=== PATIENT | male | born 1950 ===

== ENCOUNTER 2022-12-16 15:24 | Outpatient (CLI) | payer MEDICARE, OTHER ==
--- NOTE | 2022-12-16 16:34 | Sleep Patient Instructions ---
Sleep Center Visit Summary - Patient Visit Information Reason for Visit: Initial consult - Patient Instructions Additional Instructions: You will continue with CPAP therapy with pressure set at 7-14 cmH2O. A supply prescription will be updated with your DME. We encourage you to continue to try to lose weight. Please follow up with the sleep care office in 1 year. - Clinic Information Contact: [facility] [address] [place] [address] [email or web address] T: [phone]
--- NOTE | 2022-12-16 16:43 | SLEEP CARE CONSULTATION ---
Information from patient questionnaire entered by Samantha Real. I have reviewed and concur with the information entered by Samantha Real. This document represents the service I personally performed and the decisions made by me, Morena Husain ARNP. History of Present Illness Service Date and Time: 12/16/2022 1524 Reason for Visit: New patient, Previously diagnosed sleep apnea, sleep apnea on CPAP therapy Chief Complaint: reports: Other (Follow up for existing apnea) Date of Onset: 15-20 years Usual bedtime: 11 PM to midnight Time it takes to fall asleep: less than 10 mins Snores at night: Yes Observed to quit breathing while asleep: Yes Sleeps alone due to snoring: No Number of times waking at night: 2-3 Reasons for waking at night: reports: Pain, Bathroom Toss, Turn, or Twitch while sleeping: No Recalls having dreams: Yes Usually gets out of bed at: 07-0730 Feels refreshed in the morning: Yes Morning headache: No Sleepy or fatigued during the day: No Ever fallen asleep while driving: No Takes day naps: Yes Dreams during day naps: No Prior sleep studies: Yes Year and Where: [facility] Additional HPI information: RICH MENDOZA was previously diagnosed to have moderate, AHI 20.7, obstructive sleep apnea-hypopnea syndrome as documented in chart notes from [facility] and comes in today to establish care for CPAP therapy. We obtained a sleep study dated 12/14/2007 showing moderate obstructive sleep apnea with an average AHI of 20.7 and keith oxygen saturation of 74.6%. - Parasomnia Symptoms Ever been unable to move upon waking from sleep: No Walks in sleep: No Talks in sleep: No Ever acted out dreams in sleep: No Ever felt weak in the knees when startled or emotional: Yes Bothered by creepy, crawly, restless sensations in legs: No Problems with memory or concentration: Yes CPAP Compliance Data - Data Reviewed with Patient Average duration of nightly device use: 6 hours 48 minutes Compliance rate %: 99.5 (181/182 days used) Current pressure setting (cmH2O): 7-14 (avg 12) Average residual AHI: 2 Average large leak: 1 mins 15 secs Compliance data discussion: He has a [facility] with a setup date of 05/2019. He is getting his supplies from [facility] with no issues. He is using a nasal cushion mask, [employer]med Mirage FX. He does have a backup mask right now. He replaced his nasal cushion last night. Subjective Missed days of use due to: reports: travel Patient concerns: reports: dry mouth, nose, throat (rarely). denies: aerophagia, mask discomfort, air blowing in eyes, mask leak noise, condensation in mask/hose, nasal congestion, epistaxis Observed to snore while using device: No Current pressure setting perceived as: comfortable On therapy, patient: reports: sleeping better, awakening more refreshed, being more awake and alert during the day, more rested overall. denies: drowsiness while driving Initial [place] Sleepiness Scale score: 6 (12/16/2022) Past Medical History Past Medical History: reports: Hypertension, Arthritis Social History The patient's occupation is a [place]. Patient is Unknown and lives in . Have you smoked in the past 12 months: No Cigarettes per day (20/pack): 2 Years of smokin Quit date: Jan 1998 Smoking Pack Years: 2.5 Alcohol use: Yes Alcohol amount and frequency: 1-2 beers, 2-3 times week Caffeine use: Yes Caffeine amount and frequency: 2 cups coffee daily Family History Family history of sleep disordered breathing: No Allergies and Home Medications Known drug allergies: No Drug allergies reviewed: Yes Home medication list reviewed: Yes Allergy and home medication list: Medications: Simvastatin 20 mg Loraditine 10 mg Amlodipine 10 mg Carvedilol 12.5 mg Furosemide 20 mg Amoxicillin 500 mg--ongoing preventative Lisinopril 40 mg Aspirin 81 mg Turmeric 500 mg [place] oil 1000 mg Echinacea 760 mg Acidopholis Review of Systems Weight gain over past 5 years: 25-30 regained from the 50 Weight loss over past 5 years: 50 Cardiovascular: reports: high blood pressure, leg or foot swelling Gastrointestinal: denies: heartburn Neurological: denies: headaches Psychiatric: denies: anxiety, depression Ear/Nose/Throat: reports: sinus problems, wisdom teeth removed. denies: tonsillectomy Musculoskeletal: reports: joint pain, joint swelling Immunologic: reports: sneezing Physical Exam Vital signs obtained and entered by: Morena Gillis NP Blood Pressure: 135/82 Cuff size: wrist (left) Heart Rate: 59 O2 Saturation: 94 Height: 6 ft 2 in Weight: 254 lb 12.8 oz Body Mass Index: 32.7 BMI Classification: Obese Heart: regular rate and rhythm Lungs: clear bilaterally Impression and Plan 1. Obstructive Sleep Apnea-Hypopnea Syndrome, moderate, with good treatment compliance and good apnea control. On CPAP therapy, the patient has better sleep quality and is more rested overall. Patient has significant improvement of their sleep apnea and is satisfied with current CPAP therapy. Patient denies problems with oral dryness, nasal congestion, epistaxis, skin irritation or aerophagia. Patient's apnea severity and rationale for treatment to reduce apnea, improve sleep quality and reduce cardiovascular and cerebrovascular events was reviewed. I also reviewed the benefit of consistent device use of CPAP for hypertension. I will update prescription for supplies. Patient asking about getting a travel CPAP machine. After some discussion, patient will wait and call for a prescription if he decides to get a travel CPAP. 2. Obesity, unspecified. Currently patients BMI is 32.7. Obesity increases the risk of apnea, CPAP pressure requirements and overall health risks especially cardiovascular and diabetes. Thus patient is advised to lose weight. * Continue auto CPAP pressure at 7-14 cmH2O * Update supplies * Notify me if snoring with mask or feeling that the pressure is too much or too little * Attempt to lose weight * Call this office if any problems using CPAP * Return for follow up in 1 year, or sooner if concerns arise Counseling Topics: Spare mask, Weight loss health impact Visit Type: In Office Time Spent with Patient (minutes): 40 Provider Statement: I spent 100% of the Face to Face Visit with the patient with greater than 50% spent counseling the patient and coordination of care.
[2022-12-16 17:16] VITALS: BP 135/82
== END 2022-12-16 15:25 | disposition home or self-care (01) ==
LOC: SC 15:24
PROVIDERS: ATTEND Nurse Practitioner Family
DX: G47.33 Obstructive sleep apnea (adult) (pediatric) (principal); E66.9 Obesity, unspecified; Z68.32 Body mass index [BMI] 32.0-32.9, adult
CPT/HCPCS: 99203; G0463; 99212

== ENCOUNTER 2024-02-09 10:18 | Outpatient (CLI) | payer MEDICARE, OTHER ==
--- NOTE | 2024-02-09 11:03 | Sleep Patient Instructions ---
Sleep Center Visit Summary - Patient Visit Information Reason for Visit: Annual follow-up - Patient Instructions Additional Instructions: You will continue with CPAP therapy with pressure set at 7-14 cmH2O. A supply prescription will be updated with your DME supplier. We encourage you to continue to try to lose weight. Please follow up with the sleep care office in 1 year. - Clinic Information Contact: [facility] [address] [place] [address] [email or web address] T: [phone]
--- NOTE | 2024-02-09 11:06 | SLEEP CARE CONSULTATION ---
Information from patient questionnaire entered by Nafisa Patiño. I have reviewed and concur with the information entered by Nafisa Patiño. This document represents the service I personally performed and the decisions made by , Morena Husain ARNP. History of Present Illness Service Date and Time: 02/09/2024 1018 Previous diagnosis: Moderate, Obstructive Sleep Apnea-Hypopnea Syndrome AHI: 20.7 (2007) Reason for follow up: annual (Last seen 12/2022) Equipment type: CPAP (Dreamstation 2) Equipment obtained from: [employer] (getting supplies) Mask style: Nasal (over nose) Backup mask available: No Last cushion change: 3 months Prior sleep studies: Yes Year and Where: [facility] 2007 Type of Sleep Study: Polysomnography HPI additional information: RICH MENDOZA was diagnosed to have moderate, AHI 20.7, obstructive sleep apnea- hypopnea syndrome and returned today for CPAP therapy annual follow-up. Sleep Study - Results Prior sleep studies: Yes Year and Where: [facility] CPAP Compliance Data - Data Reviewed with Patient Average duration of nightly device use: 7 hours 16 minutes Compliance rate %: 97 (177/180 days used) Current pressure setting (cmH2O): 7-14 Average residual AHI: 2.5 Subjective Missed days of use due to: reports: travel (used different battery powered nasal device) Patient concerns: reports: dry mouth, nose, throat (sometimes). denies: aerophagia, mask discomfort, air blowing in eyes, mask leak noise, condensation in mask/hose, nasal congestion, epistaxis Observed to snore while using device: No Current pressure setting perceived as: comfortable On therapy, patient: reports: sleeping better, awakening more refreshed, being more awake and alert during the day, more rested overall. denies: drowsiness while driving Initial [place] Sleepiness Scale score: 6 (12/16/2022) Current [place] Sleepiness Scale score: 10 (02/09/24) Allergies and Home Medications Known drug allergies: No Drug allergies reviewed: Yes Home medication list reviewed: Yes (as listed) Allergy and home medication list: Allergies No Known Drug Allergies Allergy (Verified 02/09/24 10:47) Home Medications Amoxicillin 500 mg ORAL BID 02/09/24 [History] Aspirin 81 mg ORAL DAILY 02/09/24 [History] Fish Oil 1,000 mg Softgel 1,000 mg ORAL BID 02/09/24 [History] Furosemide 20 mg ORAL DAILY 02/09/24 [History] Glucosamine HCl 1,000 mg ORAL BID 02/09/24 [History] Lisinopril 40 mg ORAL DAILY 02/09/24 [History] Loratadine 10 mg ORAL DAILY 02/09/24 [History] Rosuvastatin Calcium 20 mg ORAL DAILY 02/09/24 [History] Terbinafine 250 mg ORAL DAILY 02/09/24 [History] amLODIPine 10 mg ORAL DAILY 02/09/24 [History] carvediloL 12.5 mg ORAL BID 02/09/24 [History] Review of Systems Review of systems same as previous: No (Right knee replaced 08/2023) Physical Exam Vital signs obtained and entered by: Morena Gillis NP Blood Pressure: 128/81 Cuff size: long (left arm) Heart Rate: 56 O2 Saturation: 97 Height: 6 ft 2 in Weight: 258 lb 3.2 oz Body Mass Index: 33.1 BMI Classification: Obese Impression and Plan 1. Obstructive Sleep Apnea-Hypopnea Syndrome, moderate, with good treatment compliance and good apnea control. On CPAP therapy, the patient has better sleep quality and is more rested overall. Patient has significant improvement of their sleep apnea and is satisfied with current CPAP therapy. Patient denies significant problems with oral dryness, nasal congestion, epistaxis, skin irritation or aerophagia. Patient's apnea severity and rationale for treatment to reduce apnea, improve sleep quality and reduce cardiovascular and cerebrovascular events was reviewed. I also reviewed the benefit of consistent device use of CPAP for hypertension. 2. Obesity, unspecified. Currently patients BMI is 33.1. Obesity increases the risk of apnea, CPAP pressure requirements and overall health risks especially cardiovascular and diabetes. Thus patient is advised to lose weight. * Continue auto CPAP pressure at 7-14 cmH2O * Update supply prescription * Notify me if snoring with mask or feeling that the pressure is too much or too little * Attempt to lose weight * Call this office if any problems using CPAP * Return for follow up in 12 months, or sooner if concerns arise Counseling Topics: Spare mask, Weight loss health impact Prescriptions: Device supplies Follow up with Sleep Care in: 1 year Visit Type: In Office Time Spent with Patient (minutes): 26 Provider Statement: I spent 100% of the Face to Face Visit with the patient with greater than 50% spent counseling the patient and coordination of care.
[2024-02-09 11:17] VITALS: BP 128/81; O2SAT 97
== END 2024-02-09 10:19 | disposition home or self-care (01) ==
LOC: SC 10:18
PROVIDERS: ATTEND Nurse Practitioner Family
DX: G47.33 Obstructive sleep apnea (adult) (pediatric) (principal); E66.9 Obesity, unspecified; Z68.33 Body mass index [BMI] 33.0-33.9, adult
CPT/HCPCS: 99213; G0463; 99212